=== PATIENT | female | born 1980 | race Hispanic/Latino ===

== ENCOUNTER 2018-04-23 10:29 | Emergency (ER) | payer SELFPAY ==
[~2018-04-23] VITALS: Ht 165.1 cm; Wt 86.2 kg
--- OUTSIDE RECORDS SUMMARY | 2018-04-23 10:31 | XMS REPORT ---
Author Author [facility] Address Unknown Phone Unavailable Care Team Providers Care Bedspread Cutter Hand Name Role Phone Unavailable Unavailable Problems This patient has no known problems. Allergies, Adverse Reactions, Alerts This patient has no known allergies or adverse reactions. Medications This patient has no known medications. Encounters Start Date/Time End Date/Time Encounter Type Admission Type Attending [facility] Facility Care Department Encounter ID 2018-01-13 15:26:12 2018-01-13 15:26:12 Outpatient [facility] [id number] 2018-01-13 00:00:00 2018-01-13 00:00:00 Outpatient [facility] [id number] 2018-01-13 00:00:00 2018-01-13 00:00:00 Outpatient [facility] [id number] 2018 00:00:00 2018 00:00:00 Outpatient [facility] [id number] 2018-01-11 00:00:00 2018-01-11 00:00:00 Outpatient [facility] [id number] 2017-07-22 00:00:00 2017-07-22 00:00:00 Outpatient [facility] [id number] 2017-05-21 13:42:22 2017-05-21 13:42:22 Outpatient [facility] [id number] 2017-04-01 00:00:00 2017-04-01 00:00:00 Outpatient [facility] [id number] 2017-02-18 00:00:00 2017-02-18 00:00:00 Outpatient [facility] [id number] 2017-02-17 12:54:10 2017-02-17 12:54:10 Outpatient [facility] [id number]
--- OUTSIDE RECORDS SUMMARY | 2018-04-23 10:31 | XMS REPORT | Clinical Summary ---
Author Author [facility] Organization [facility] Address Unknown Phone Unavailable Care Team Providers Care Converting Supervisor Name Role Phone Michael Ramirez MD PCP Allergies Comments Active Allergy Reactions Severity Noted Date Hospital type Dye Rash Medium 02/17/2017 Medications End Date Status Medication Sig Dispensed Refills Start Date Active loratadine (CLARITIN) 10 Take 1 tablet 90 tablet 1 02/17/201 mg tabletIndications: by mouth 7 Tonsillar hypertrophy daily. Active Problems Problem Noted Date Tonsillar hypertrophy 02/17/2017 Morbid obesity 02/17/2017 Encounters Care Team Description Date Type Specialty Nelli Edwards, Missy Pino LVN Immunization due (Primary Dx) 01/13/2018 Nurse Only Family Practice Xin Ledesma Appointment Related Questions 01/13/2018 Telephone Family Practice Shanta Russo Appointment Related Questions 2018 Telephone Family Practice Gini Brooks Appointment Related Questions 01/11/2018 Telephone Family Practice Helene Swanson MD Walker, Shajuanda, NP Tonsillar hypertrophy (Primary Dx); BMI 39.0-39.9,adult; Snoring 05/21/2017 Office Visit Ent-Otolaryngology Jud De Souza RN 02/26/2017 Nurse Triage Michael Ramirez MD Preventative health care (Primary Dx); Tonsillar hypertrophy; Morbid obesity 02/17/2017 Office Visit Family Practice after 02/13/2017 Immunizations Name Dates Previously Given Next Due Influenza Vaccine, 02/17/2017 (Deferred: Patient Refused) Seasonal, Injectable Influenza, Injectable, 01/13/2018 Quadrivalent, Preservative Free TDap (Tetanus Toxoid, 02/17/2017 (Deferred: W/O Fever for 72 hours) Reduced Diphtheria Toxoid And Acellular Pertussis, Absorbed) Family History Medical History Relation Name Comments Hypertension Father Diabetes Mother Hypertension Mother Relation Name Status Comments Brother 1 Alive Daughter 2 Alive Father Alive Maternal Grandfather Maternal Grandmother Alive Mother Alive Paternal Grandfather Paternal Grandmother Sister 4 Alive Sister 1 Son 1 Alive Social History Date Tobacco Use Types Packs/Day Years Used Never Smoker Smokeless Tobacco: Never Used Alcohol Use Drinks/Week oz/Week Comments Yes Social Sex Assigned at Date Recorded Not on file Industry Job Start Date Occupation Not on file Not on file Not on file Travel End Travel History Travel Start No recent travel history available. Last Filed Vital Signs Time Taken Vital Sign Reading 05/21/2017 1:56 PM CDT Blood Pressure 118/80 05/21/2017 1:56 PM CDT Pulse 94 05/21/2017 1:56 PM CDT Temperature 36.8 C (98.2 F) 05/21/2017 1:56 PM CDT Respiratory Rate 18 - Oxygen Saturation - - Inhaled Oxygen - Concentration 05/21/2017 1:56 PM CDT Weight 97.5 kg (215 lb) 05/21/2017 1:56 PM CDT Height 157.5 cm (5' 2") 05/21/2017 1:56 PM CDT Body Mass Index 39.32 Plan of Treatment Health Maintenance Due Date Last Done Comments Breast Cancer Scrn 2018 (Yearly) Cervical Cancer Scrn (3 01/05/2019 01/06/2016 (Previously completed - Yrs) External) IMM Influenza Seasonal Completed 01/13/2018Nov to April (>/=19 yrs) Results Not on fileafter 02/13/2017
--- OUTSIDE RECORDS SUMMARY | 2018-04-23 10:31 | XMS REPORT | Continuity of Care Document ---
Author Author [facility] Address Unknown Phone Unavailable Problems Problem Status Onset Date Classification Date Reported Comments Source Tonsillar hypertrophy Active 02/17/2017 02/15/2018 [facility] Morbid obesity Active 02/17/2017 02/15/2018 [facility] Immunization due Active 02/15/2018 [facility] BMI 39.0-39.9,adult Active 02/15/2018 [facility] Snoring Active 02/15/2018 [facility] Preventative health care Active 02/15/2018 [facility] Medications Medication Details Route Status Patient Instructions Ordering Provider Order Date Source loratadine (CLARITIN) 10 mg tablet Take 1 tablet by mouth daily. Oral Active 02/17/2017 [facility] Allergies, Adverse Reactions, Alerts Substance Category Reaction Severity Reaction type Status Date Reported Comments Source Dye Rash Medium Propensity to adverse reactions to drug Active 02/17/2017 [facility] Immunizations Immunization Date Given Site Status Last Updated Comments Source Influenza, Injectable, Quadrivalent, Preservative Free 01/13/2018 completed [facility] TDap (Tetanus Toxoid, Reduced Diphtheria Toxoid And Acellular Pertussis, Absorbed) 02/17/2017 Not Given Deferred: W/O Fever for 72 hours [facility] Influenza Vaccine, Seasonal, Injectable 02/17/2017 Not Given Deferred: Patient Refused [facility] Results Order Name Results Value Reference Range Date Interpretation Comments Source Vital Signs Vital Sign Value Date Comments Source Systolic (mm Hg) 118 05/21/2017 [facility] Diastolic (mm Hg) 80 05/21/2017 [facility] Heart Rate 94 05/21/2017 [facility] Temperature Oral (F) 36.78 Giuliana 05/21/2017 [facility] Respitory Rate 18 05/21/2017 [facility] Height 157.5 cm 05/21/2017 [facility] Weight 97.523 05/21/2017 [facility] Encounters Location Location Details Encounter Type Encounter Number Reason For Visit Attending Provider ADM Date DC Date Status Source Family [facility] [place] Office Visit [id number] Michael Ramirez MD 02/17/2017 02/17/2017 [facility] ASK YOUR NURSE PROGRAM Nurse Triage [id number] Jud De Souza RN 02/26/2017 [facility] Office Visit [id number] Helene Swanson MD 05/21/2017 05/21/2017 [facility] Telephone [id number] Gini Brooks 01/11/2018 [facility] Telephone [id number] Shanta Rafaela 2018 [facility] Telephone [id number] Xin Ledesma 01/13/2018 [id number] Nelli Edwards NP 01/13/2018 01/13/2018 [facility] Procedures Procedure Code Date Perfomer Comments Source
[2018-04-23] MEDS ORDERED: IBUPROFEN 400 MG TAB PO ONE (11:00)
--- NOTE | 2018-04-23 11:40 | Diagnostic Imaging Report ---
EXAM: CHEST 2 VIEWS DATE: 04/23/2018 10:54 AM INDICATION: Sore throat, cough COMPARISON: None FINDINGS: Lines and tubes: None Heart size normal. No focal pulmonary opacity, pleural effusion or pneumothorax. Upper abdomen unremarkable. No acute bony abnormality. IMPRESSION: No evidence for acute disease. Signed by: Dr. Ben Marsh M.D. on 04/23/2018 11:37 AM
[2018-04-23 12:14] VITALS: BP 131/89
[2018-04-23] MEDS ORDERED: ONDANSETRON HCL INJ 2MG/ML 2ML 2 MG/ML VIAL IM STA (14:15)
[2018-04-23] MEDS ORDERED: HYDROMORPHONE 2MG/ML 2 MG/ML ML IM ONE (14:15)
== END 2018-04-23 12:10 | disposition home or self-care (01) ==
LOC: ER 10:29
DX: J03.00 Acute streptococcal tonsillitis, unspecified (principal)
CPT/HCPCS: 71046; 83518; 87070; 99283; J1170; J2405

== ENCOUNTER 2021-10-29 02:51 | Emergency (ER) | payer SELFPAY ==
[~2021-10-29] VITALS: Ht 165.1 cm; Wt 86.2 kg
[2021-10-29] MEDS ORDERED: DICYCLOMINE HCL20 MG PO (03:10)
[2021-10-29] MEDS ORDERED: ONDANSETRON ODT4 MG PO (03:10)
[2021-10-29] MEDS ORDERED: ONDANSETRON HCL 4 MG ORAL DISINTEGRATING TAB PO ONE (03:15)
== END 2021-10-29 03:48 | disposition home or self-care (01) ==
LOC: ER 03:00
DX: R00.2 Palpitations (principal); A05.9 Bacterial foodborne intoxication, unspecified; R11.2 Nausea with vomiting, unspecified; I10 Essential (primary) hypertension
CPT/HCPCS: 93005; 99283; Q0162

== ENCOUNTER 2023-07-08 07:19 | Emergency (ER) | payer SELFPAY ==
[~2023-07-08] VITALS: Ht 165.1 cm; Wt 86.2 kg
[~2023-07-08 07:19] MED LIST: DICYCLOMINE HCL20 MG PO; ONDANSETRON ODT4 MG PO
[2023-07-08 07:25] VITALS: O2SAT 98
[2023-07-08] MEDS: SODIUM CHLORIDE 0.9% 1000ML 1,000 ML IV ONE (07:55)
[2023-07-08] MEDS: ONDANSETRON HCL INJ 2MG/ML 2ML 2 MG/ML VIAL IV STA (07:56)
[2023-07-08 07:57] LABS: BASOPHILS % 0.5 % (0.0-1.0); EOSINOPHILS # (AUTO) 0.2 (0.0-0.4); HEMATOCRIT 40.9 % (34.2-44.1); HEMOGLOBIN 13.4 g/dL (12.0-16.0); LYMPHOCYTES % 31.1 % (18.0-39.1); MEAN CORPUSCULAR HEMOGLOBIN 27.5 pg (28-32); MEAN CORPUSCULAR HGB CONC 32.8 g/dL (31-35); MONOCYTES # (AUTO) 0.5 (0.2-0.8); MONOCYTES % 7.2 % (4.4-11.3); NEUTROPHILS # (AUTO) 3.7 (2.1-6.9); NEUTROPHILS % 57.9 % (38.7-80.0); PLATELET COUNT 335 x10e3/uL (140-360); RED BLOOD COUNT 4.87 x10e6/uL (3.6-5.1); RED CELL DISTRIBUTION WIDTH 15.7 % (11.7-14.4)
[2023-07-08 08:15] LABS: ALBUMIN 3.5 g/dL (3.5-5.0); ALBUMIN/GLOBULIN RATIO 0.8 (0.8-2.0); ANION GAP 13.6 mmol/L (8-16); BILIRUBIN,TOTAL 0.7 mg/dL (0.2-1.2); CREATININE, SERUM 0.62 mg/dL (0.57-1.11); POTASSIUM 3.6 mmol/L (3.5-5.1); TOTAL PROTEIN 7.7 g/dL (6.5-8.1)
[2023-07-08 10:44] LABS: BACTERIA,URINE MODERATE /HPF; BILIRUBIN,URINE NEGATIVE (NEGATIVE); CLARITY,URINE SL CLOUDY (CLEAR); COLOR,URINE YELLOW (YELLOW); EPITHELIAL CELLS,URINE FEW /LPF; GLUCOSE, URINE NEGATIVE (NEGATIVE); KETONES,URINE NEGATIVE (NEGATIVE); LEUKOCYTE ESTERASE ,URINE NEGATIVE (NEGATIVE); NITRITE,URINE NEGATIVE (NEGATIVE); PH,URINE 7 (5 - 7); PROTEIN,URINE DIPSTICK NEGATIVE (NEGATIVE); RBC,URINE 0-5 /HPF (0-5); URINE UROBILINOGEN 0.2 mg/dL (0.2 - 1)
[2023-07-08] MEDS ORDERED: ONDANSETRON ODT4 MG PO (10:56)
[2023-07-08] MEDS: KETOROLAC TROMETHAMINE 30 MG/ML VIAL IV STA (11:18)
== END 2023-07-08 11:21 | disposition home or self-care (01) ==
LOC: ER 07:24
DX: R10.33 Periumbilical pain (principal); R11.2 Nausea with vomiting, unspecified; I10 Essential (primary) hypertension
CPT/HCPCS: 36415; 80053; 81001; 83690; 85025; 99283; J1885; J2405; J7030